=== PATIENT | male | born 1995 | race African-American/Black ===

== ENCOUNTER 2016-12-17 06:31 | Emergency (ER) | payer BC ==
[2016-12-17] MEDS ORDERED: Famotidine IV* 10 MG/ML 2 ML (20 mg) IV ONE (07:24)
[2016-12-17] MEDS ORDERED: NS 0.9% 1000 ML* 1,000 ML IV ONE (07:24)
[2016-12-17] MEDS ORDERED: Ondansetron INJ* 2 MG/ML VIAL IV ONE (07:24)
[2016-12-17 08:01] LABS: Hematocrit 49 % (42-52); Hemoglobin 16.3 g/dl (14.0-18.0); Mean Corpuscular HGB Conc 33 g/dl (31-36); Mean Corpuscular Hemoglobin 26 pg (27-31); Mean Corpuscular Volume 78 fL (80-94); Mean Platelet Volume 10 um3 (7.4-10.4); Red Cell Distribution Width 14 % (10.5-15); White Blood Count 12.4 10^3/ul (3.5-10.8)
[2016-12-17 08:18] LABS: ALT 27 U/L (7-52); AST 21 U/L (13-39); Albumin 4.7 g/dL (3.2-5.2); Alkaline Phosphatase 69 U/L (34-104); Amylase 37 U/L (29-103); Anion Gap 10 mmol/L (2-11); BUN/Creatinine Ratio 15.6 (8-20); Blood Urea Nitrogen 17 mg/dL (6-24); C Reactive Protein 48.77 mg/L (< 5.00); CO2 Carbon Dioxide 24 mmol/L (22-32); Calcium 9.6 mg/dL (8.6-10.3); Chloride 97 mmol/L (101-111); EGFR African American 109.8 (>60); EGFR Non-African American 85.4 (>60); Globulin 3.2 g/dL (2-4); Glucose 130 mg/dL (70-100); Lipase < 10 U/L (11.0-82.0); Potassium 4.1 mmol/L (3.5-5.0); Sodium 131 mmol/L (133-145); Total Protein 7.9 g/dL (6.4-8.9)
[2016-12-17] MEDS ORDERED: Iohexol 300* (CONTRAST) 10 ML SDV IV ONE (09:16)
[2016-12-17 09:47] LABS: Urine Bilirubin Negative (Negative); Urine Glucose Negative (Negative); Urine Nitrite Negative (Negative)
--- NOTE | 2016-12-17 10:10 | RAD ---
Indication: Abdominal pain. Contrast: Administered 102.8 ml of OMNIPAQUE 300 mgi/ml CT of the abdomen and pelvis was performed after oral and IV contrast administration. Coronal and sagittal reconstructed images were obtained. Lung bases demonstrate no pleural fluid, nodules or masses. Heart is of normal size without evidence of pericardial effusion. Liver is normal in size. No focal lesions or intrahepatic ductal dilatation is noted. The spleen is normal in size. The pancreas demonstrates no mass or pancreatic ductal dilatation. No adrenal masses are noted. The kidneys demonstrate symmetric nephrograms without focal lesions. No hydronephrosis is noted. The gallbladder is partially contracted. Common duct is not dilated. Pancreas demonstrates no mass or pancreatic duct dilatation. Small bowel demonstrates no abnormal dilatation. The appendix is visualized and is within normal limits. No evidence of bowel obstruction is noted. No hernias are noted. There is suggestion of some nonspecific mucosal thickening of the distal small bowel. Possibility of gastroenteritis should BE considered. IMPRESSION: NORMAL APPENDIX. NO EVIDENCE OF BOWEL OBSTRUCTION IS NOTED. NONSPECIFIC MUCOSAL THICKENING OF THE DISTAL SMALL BOWEL BUT THE POSSIBILITY OF GASTROENTERITIS SHOULD BE CONSIDERED. NO FLUID COLLECTION IS IDENTIFIED.
[2016-12-17 11:16] VITALS: BP 128/66
--- NOTE | 2016-12-17 17:15 | ED ---
Dora Dangelo Michael, scribed for Jarrett Mora MD on 12/17/16 at 0719 . Abdominal Pain/Male - HPI Summary HPI Summary: 21 y/o male comes to the ED presenting with intermittent episodes of sharp and diffuse abd pain that is worse in the LLQ. The pt reports that the abd pain started one day ago at 1500, and as the pain intensified, he vomited at 2100. In total, the pt had 4 vomiting episodes. The first vomiting episode slightly alleviated the abd pain. The pt also c/o nausea and watery diarrhea without blood or mucus. He denies fever and chills. The FHx is significant for ME and DM. The pt was a vegetarian for 21 year, and has just recently started eating meat 3 months ago. He notes having a hamburger yesterday at 1300. - History of Current Complaint Chief Complaint: EDAbdPain Stated Complaint: ABD PAIN Time Seen by Provider: 12/17/16 07:11 Hx Obtained From: Patient, Medical Records Onset/Duration: Sudden Onset, Lasting Hours, Still Present Timing: Intermittent Severity Initially: Mild Severity Currently: Moderate Pain Intensity: 9 Pain Scale Used: 0-10 Numeric Location: Diffuse Radiates: No Character: Sharp Aggravating Factor(s): Other: - vomiting Alleviating Factor(s): Nothing Associated Signs And Symptoms: Positive: Negative - chills, Nausea, Vomiting, Diarrhea. Negative: Fever, Blood in Stool - Allergies/Home Medications Allergies/Adverse Reactions: Allergies Allergy/AdvReac Type Severity Reaction Status Date / Time No Known Allergies Allergy Verified 06/06/14 23:28 PMH/Surg Hx/FS Hx/Imm Hx Previously Healthy: Yes - pt denies significant PMHx Endocrine/Hematology History: Denies: Hx Diabetes Infectious Disease History: No Infectious Disease History: Denies: Traveled Outside the [place] in Last 30 Days - Family History Known Family History: Positive: Diabetes, Other - ME - Social History Occupation: Student Lives: With Family Alcohol Use: Occasionally Alcohol Amount: 1-2 beers on Sunday Substance Use Type: Reports: None Smoking Status (MU): Never Smoked Tobacco Review of Systems Negative: Fever, Chills Positive: Abdominal Pain, Vomiting, Diarrhea, Nausea All Other Systems Reviewed And Are Negative: Yes Physical Exam - Summary Physical Exam Summary: VITAL SIGNS: Reviewed. GENERAL: Patient is a well developed and nourished male who is lying comfortable in the stretcher. Patient is not in any acute respiratory distress. HEAD AND FACE: Normocephalic and atraumatic. EYES: PERRLA, EOMI x 2, No injected conjunctiva. EARS: Hearing grossly intact. Ear canals and tympanic membranes are WNL. MOUTH: Oropharynx within normal limits. NECK: Supple, trachea is midline, no adenopathy, no JVD. CHEST: Symmetric, no tenderness at palpation LUNGS: Clear to auscultation bilaterally. No wheezing or crackles. CVS: RRR,, S1 and S2 present, no murmurs or gallops appreciated. ABDOMEN: Soft, diffuse abdominal tenderness. No signs of distention. Positive bowel sounds. No rebound no guarding, and no masses palpated. No abdominal bruit or pulsations. EXTREMITIES: FROM in all major joints, no edema, no cyanosis or clubbing. NEURO: Alert and oriented x 3. No acute neurological deficits. Speech is normal. SKIN: Dry and warm Triage Information Reviewed: Yes Vital Signs On Initial Exam: Initial Vitals Temp Pulse Resp BP Pulse Ox 97.2 F 95 18 129/76 96 12/17/16 06:33 12/17/16 06:33 12/17/16 06:33 12/17/16 06:33 12/17/16 06:33 Vital Signs Reviewed: Yes Abdomen Description: Positive: Soft. Negative: Nontender - diffuse tenderness Bowel Sounds: Positive: Hyperactive Diagnostics - Vital Signs Vital Signs Temp Pulse Resp BP Pulse Ox 12/17/16 06:33 97.2 F 95 18 129/76 96 - Laboratory Result Diagrams: 12/17/16 07:55 12/17/16 07:55 Lab Statement: Any lab studies that have been ordered have been reviewed, and results considered in the medical decision making process. - CT CT ABD CT Interpretation: Positive (See Comments) - NORMAL APPENDIX. NO EVIDENCE OF BOWEL OBSTRUCTION IS NOTED. NONSPECIFIC MUCOSAL THICKENING OF THE DISTAL SMALL BOWEL BUT THE POSSIBILITY OF GASTROENTERITIS SHOULD BE CONSIDERED. NO FLUID COLLECTION IS IDENTIFIED. CT Interpretation Completed By: Radiologist Abdominal Pain Fem Course/Dx - Course Assessment/Plan: 1 y/o male comes to the ED presenting with intermittent episodes of sharp and diffuse abd pain that is worse in the LLQ. The pt reports that the abd pain started one day ago at 1500, and as the pain intensified, he vomited at 2100. In total, the pt had 4 vomiting episodes. The first vomiting episode slightly alleviated the abd pain. The pt also c/o nausea and watery diarrhea without blood or mucus. He denies fever and chills. The FHx is significant for ME and DM. The pt was a vegetarian for 21 year, and has just recently started eating meat 3 months ago. He notes having a hamburger yesterday at 1300. The blood work showed WBC of 12.4 without any bands, 130 glucose, 131 Sodium, 2.1 lactic acid and C-reactive protein 48.77. Urine analysis was negative for UTI. The CT shows non specific thickening consistent with gastroenteritis. He was given IV fluid for hydration and Zofran and Pepcin for nausea and vomiting, and morphine for pain. After the medications were given , his symptoms were alleviated. Now patien has no pain, nausea, or vomiting. He was observed for 4 hours and symptoms did not return. He was given PO challenge and he reported no nausea or vomiting. The patient will be discharged home and follow up with PCP. I discussed all the findings and test results with the patient. Patient was instructed to return to the emergency room immediately if any of the symptoms return or worsens. They were explained the possibility of an early abdominal pathology which was not detected at this time despite the physical exam and testing. They understand and agree. Abdominal exam before discharge: Soft, NT. No signs of distention. BS present. No rebound no guarding , and no masses palpated. Patient is alert and oriented and hemodynamically stable. Patient is to follow up with primary care physician in the next 2 to 3 days. Patient agree and understands. - Diagnoses Differential Diagnosis/HQI/PQRI: Bowel Obstruction, Constipation, Diverticulitis , Pancreatitis Provider Diagnoses: Nausea vomiting and diarrhea Discharge - Discharge Plan Condition: Improved Disposition: HOME Prescriptions: Ondansetron ODT TAB* [Zofran 4 MG Odt TAB*] 4 mg PO Q6H PRN #10 tab.odt PRN Reason: Vomiting Patient Education Materials: Acute Nausea and Vomiting (ED), Acute Diarrhea (ED ) Referrals: [facility] [Primary Care Provider] - Additional Instructions: You will follow up with [facility] within the next 2 days. The documentation as recorded by the Dora wilson Michael accurately reflects the service I personally performed and the decisions made by me, Jarrett Mora MD.
--- NOTE | 2016-12-19 11:44 | ED ---
Progress - Progress Note Progress Note: Pt's stool cx neg for bacterial findings however is + lactoferrin. Was dx'd w/ suspected gastroenteritis. LMTC for f/u of sx. If no call back by today, will mail letter to pt to note f/u if same or worse. Course/Dx - Diagnoses Provider Diagnoses: Nausea vomiting and diarrhea
== END 2016-12-17 11:14 | disposition home or self-care (01) ==
LOC: ED 06:31
DX: R11.2 Nausea with vomiting, unspecified (principal); R19.7 Diarrhea, unspecified; R10.32 Left lower quadrant pain
CPT/HCPCS: 36415; 74177; 80053; 81003; 82150; 83605; 83630; 83690; 85025; 86140; 87045; 87046; 87077; 87493; 87899; 96374; 96375; 99283; J2405; Q9967